=== PATIENT | male | born 1990 | race Caucasian/White ===

== ENCOUNTER 2017-03-26 21:49 | Emergency (ER) | payer SELFPAY ==
[~2017-03-26] VITALS: Ht 193 cm; Wt 91.0 kg
[~2017-03-26 21:49] MED LIST: CLIN150 PO; LORTA5 PO; Z.0.NO CURRENT MEDS
[2017-03-26 21:52] VITALS: BP 134/78; PULSE 58; RESP 18; TEMP 99.1; O2SAT 100
[2017-03-26] MEDS ORDERED: IBUP200C PO (22:09)
[2017-03-26 22:11] VITALS: BP 138/79; PULSE 69; RESP 16; O2SAT 98
[2017-03-26] MEDS ORDERED: CLINDAMYCIN 900 MG PREMIX 50 ML IV ONE (22:30)
--- NOTE | 2017-03-26 22:30 | PD ---
HPI Chief Complaint: Oral / Dental Pain or Problem Time Seen by Provider: 22:04 Travel History International Travel<30 days: No Contact w/Intl Traveler<30days: No Traveled to known affect area: No History of Present Illness HPI PATIENT STATES 2 DAYS OF SWELLING TO LEFT SIDE OF FACE, SEEN AT [facility] WHO WAS GOING TO TRANSFER TO [place], HOWEVER, PATIENT REFUSED BECAUSE IT WAS TOO FAR. PATIENT SIGNED OUT AMA AND STATES THAT HE WAS ADVISED TO COME TO [place] THAT WE WOULD HELP HIM. PATIENT ARRIVES WITH DVD OF CT NECK. PATIENT IS TOLERATING HIS OWN SECRETIONS BUT STATES IS DIFFICULT TO CLOSE MOUTH OR OPEN IT FURTHER THAN IT IS ALREADY DUE TO PAIN. 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 not been checked since patient 11 yrs old) Chest Pain: Yes COPD: No Diminished Hearing: No GERD: Yes Genitourinary: No Reproductive: No Migraines: Yes Myocardial Infarction: No Tetanus Vaccination: Unknown Influenza Vaccination: No Past Surgical History Abdominal Surgery: Yes (HERNIA REPAIR) Appendectomy: Yes Other Surgery: Yes (LUMBAR PUNCTURE) Social History Alcohol Use: No Tobacco Use: Yes (1-3CIGGARETTS) Substance Use: No (DENIES) Allergies-Medications (Allergen,Severity, Reaction): Coded Allergies: No Known Allergies (Verified Allergy, Unknown, 03/26/17) Reported Meds & Prescriptions Reported Meds & Active Scripts Active Ultram (Tramadol HCl) 50 Mg Tab 50 Mg PO Q6H PRN Cipro (Ciprofloxacin HCl) 500 Mg Tab 500 Mg PO BID 10 Days Reported Ibuprofen 200 Mg Cap 200 Mg PO Q6H PRN Review of Systems Except as stated in HPI: all other systems reviewed are Neg General / Constitutional: No: Fever Eyes: No: Visual changes HENT: Positive: Dental Difficulties Cardiovascular: No: Chest Pain or Discomfort Respiratory: No: Shortness of Breath Gastrointestinal: No: Abdominal Pain Genitourinary: No: Dysuria Musculoskeletal: No: Pain Skin: No Rash Neurologic: No: Weakness Psychiatric: No: Depression Endocrine: No: Polydipsia Hematologic/Lymphatic: No: Easy Bruising Physical Exam Narrative GENERAL: SKIN: Warm and dry. HEAD: Atraumatic. Normocephalic. EYES: Pupils equal and round. No scleral icterus. No injection or drainage. ENT: No nasal bleeding or discharge. Mucous membranes pink and moist. LEFT MANDIBULAR FIRST MOLAR ABSCESS WITH EXTENSION TO FACE NECK: Trachea midline. No JVD. CARDIOVASCULAR: Regular rate and rhythm. RESPIRATORY: No accessory muscle use. Clear to auscultation. Breath sounds equal bilaterally. GASTROINTESTINAL: Abdomen soft, non-tender, nondistended. Hepatic and splenic margins not palpable. MUSCULOSKELETAL: Extremities without clubbing, cyanosis, or edema. No obvious deformities. NEUROLOGICAL: Awake and alert. No obvious cranial nerve deficits. Motor grossly within normal limits. Five out of 5 muscle strength in the arms and legs. Normal speech. PSYCHIATRIC: Appropriate mood and affect; insight and judgment normal. Data Data Last Documented VS Vital Signs Date Time Temp Pulse Resp B/P (MAP) Pulse Ox O2 Delivery O2 Flow Rate FiO2 03/26/17 23:16 56 16 126/73 (90) 96 Room Air 03/26/17 21:52 99.1 Orders Orders Complete Blood Count With Diff (03/26/17 22:16) Comprehensive Metabolic Panel (03/26/17 22:16) Blood Culture (03/26/17 22:16) Iv Access Insert/Monitor (03/26/17 22:16) Ecg Monitoring (03/26/17 22:16) Oximetry (03/26/17 22:16) Clindamycin 900 Mg Premix (Cleocin 900 M (03/26/17 22:30) Clindamycin Inj (Cleocin Inj) (03/26/17 22:45) Ketorolac Inj (Toradol Inj) (03/26/17 23:30) Morphine Inj (Morphine Inj) (03/26/17 23:30) Labs Laboratory Tests Test 03/26/17 22:30 White Blood Count 15.1 TH/MM3 Red Blood Count 4.77 MIL/MM3 Hemoglobin 14.1 GM/DL Hematocrit 41.6 % Mean Corpuscular Volume 87.1 FL Mean Corpuscular Hemoglobin 29.6 PG Mean Corpuscular Hemoglobin Concent 34.0 % Red Cell Distribution Width 12.4 % Platelet Count 176 TH/MM3 Mean Platelet Volume 8.7 FL Neutrophils (%) (Auto) 92.4 % Lymphocytes (%) (Auto) 4.7 % Monocytes (%) (Auto) 2.5 % Eosinophils (%) (Auto) 0.2 % Basophils (%) (Auto) 0.2 % Neutrophils # (Auto) 13.9 TH/MM3 Lymphocytes # (Auto) 0.7 TH/MM3 Monocytes # (Auto) 0.4 TH/MM3 Eosinophils # (Auto) 0.0 TH/MM3 Basophils # (Auto) 0.0 TH/MM3 CBC Comment DIFF FINAL Differential Comment Blood Urea Nitrogen 8 MG/DL Creatinine 0.74 MG/DL Random Glucose 95 MG/DL Total Protein 7.2 GM/DL Albumin 3.8 GM/DL Calcium Level 8.9 MG/DL Alkaline Phosphatase 65 U/L Aspartate Amino Transf (AST/SGOT) 17 U/L Alanine Aminotransferase (ALT/SGPT) 24 U/L Total Bilirubin 1.0 MG/DL Sodium Level 141 MEQ/L Potassium Level 3.6 MEQ/L Chloride Level 106 MEQ/L Carbon Dioxide Level 24.9 MEQ/L Anion Gap 10 MEQ/L Estimat Glomerular Filtration Rate 128 ML/MIN MDM Medical Decision Making Medical Screen Exam Complete: Yes Emergency Medical Condition: Yes Medical Record Reviewed: Yes Differential Diagnosis FACIAL ABSCESS OF ODONTOGENIC ORIGIN V FACIAL CELLULITIS V LUDWIGS ANGINA Narrative Course CT REVIEWED WITH DR CHRISTENSEN, HE WILL FOLLOW UP WITH PATIENT AFTER DISCHARGE.....NO E/O ANGINA ON CT NECK. Diagnosis Primary Impression: FACIAL ABSCESS OF ODONTOGENIC ORIGIN Admitting Information Admitting Physician Requests: Observation Referrals: Fidel Christensen DDAsaf Scripts Tramadol (Ultram) 50 Mg Tab 50 MG PO Q6H Y for PAIN, #15 TAB 0 Refills Prov: Good Rosenthal MD 03/26/17 Ciprofloxacin (Cipro) 500 Mg Tab 500 MG PO BID for Infection for 10 Days, #20 TAB 0 Refills Prov: Good Rosenthal MD 03/26/17 Disposition: 01 DISCHARGE HOME Condition: Stable Good Rosenthal MD Mar 26, 2017 22:30
[2017-03-26 22:40] VITALS: O2SAT 98
[2017-03-26] MEDS ORDERED: CLINDAMYCIN INJ 900 MG in SODIUM CHLORIDE 0.9% INJ 100 ML IV ONE (22:45)
[2017-03-26 22:50] LABS: AUTOMATED NEUTROPHIL # 13.9 TH/MM3 (1.8-7.7); BASOPHIL % 0.2 % (0.0-2.0); EOSINOPHIL % 0.2 % (0.0-4.0); HEMATOCRIT 41.6 % (39.0-51.0); HEMO FLAGS DIFF FINAL; LYMPH % 4.7 % (9.0-44.0); LYMPHOCYTE # 0.7 TH/MM3 (1.0-4.8); MEAN CELL VOLUME 87.1 FL (80.0-100.0); MEAN CORPUSCULAR HEMOGLOBIN 29.6 PG (27.0-34.0); MONO % 2.5 % (0.0-8.0); NEUT % 92.4 % (16.0-70.0); PLATELET COUNT 176 TH/MM3 (150-450); RED BLOOD COUNT 4.77 MIL/MM3 (4.50-5.90); RED CELL DISTRIBUTION WIDTH 12.4 % (11.6-17.2); WHITE BLOOD COUNT 15.1 TH/MM3 (4.0-11.0)
[2017-03-26 23:11] LABS: ALT (GPT) 24 U/L (12-78); ANION GAP 10 MEQ/L (5-15); AST (GOT) 17 U/L (15-37); BICARBONATE 24.9 MEQ/L (21.0-32.0); BLOOD UREA NITROGEN 8 MG/DL (7-18); CHLORIDE 106 MEQ/L (98-107); GLOMERULAR FILTRATION RATE 128 ML/MIN (>89); POTASSIUM 3.6 MEQ/L (3.5-5.1); SODIUM (NA) 141 MEQ/L (136-145)
[2017-03-26 23:13] LABS: ALKALINE PHOSPHATASE 65 U/L (45-117)
[2017-03-26 23:16] VITALS: BP 126/73; PULSE 56; RESP 16; O2SAT 96
[2017-03-26] MEDS ORDERED: TRAM50 PO (23:27)
[2017-03-26] MEDS ORDERED: CIPR-9 PO (23:27)
[2017-03-26] MEDS ORDERED: MORPHINE SULFATE 2 MG/ML INJ IV PUSH ONE (23:30)
[2017-03-26] MEDS ORDERED: KETOROLAC TROMETHAMINE 30 MG/ML (IVP) VIAL IV PUSH ONE (23:30)
== END 2017-03-27 00:23 | disposition home or self-care (01) ==
LOC: NEPC 21:49
DX: K04.7 Periapical abscess without sinus (principal); J45.909 Unspecified asthma, uncomplicated; K21.9 Gastro-esophageal reflux disease without esophagitis; F17.210 Nicotine dependence, cigarettes, uncomplicated
CPT/HCPCS: 80053; 85025; 87040; 96365; 96375; 99284; J1885; J2270

== ENCOUNTER 2017-09-11 14:48 | Emergency (ER) | payer OTHER ==
[~2017-09-11] VITALS: Ht 193 cm; Wt 90.0 kg
[~2017-09-11 14:48] MED LIST changes: +CIPR-9 PO; -CLIN150 PO; +IBUP200C PO; -LORTA5 PO; +TRAM50 PO; -Z.0.NO CURRENT MEDS
[2017-09-11 14:50] VITALS: BP 139/72; PULSE 90; RESP 16; TEMP 98.4; O2SAT 99
[2017-09-11] MEDS ORDERED: SODIUM CHLOR 0.9% 1000 ML INJ 1,000 ML IV SCH (15:35)
--- NOTE | 2017-09-11 15:36 | PD ---
HPI Chief Complaint: Complaint Time Seen by Provider: 14:57 Travel History International Travel<30 days: No Contact w/Intl Traveler<30days: No Traveled to known affect area: No History of Present Illness HPI Patient 27-year-old male presents emergency department for evaluation of right testicular pain and right lower quadrant abdominal pain. Patient also states he noticed some blood in his urine today. States is never happened to him before but similar pain happened to him when he was diagnosed with a hernia in the past. He endorses nausea but no vomiting no diarrhea. He states the pain has been intermittently very severe and currently kind of mild. 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 not been checked since patient 11 yrs old) Chest Pain: Yes COPD: No Diminished Hearing: No GERD: Yes Genitourinary: No Reproductive: No Migraines: Yes Myocardial Infarction: No Past Surgical History Abdominal Surgery: Yes (HERNIA REPAIR) Appendectomy: Yes Other Surgery: Yes (LUMBAR PUNCTURE) Social History Alcohol Use: No Tobacco Use: Yes (1-3CIGGARETTS) Substance Use: No (DENIES) Allergies-Medications (Allergen,Severity, Reaction): Coded Allergies: No Known Allergies (Verified Allergy, Unknown, 03/26/17) Reported Meds & Prescriptions Reported Meds & Active Scripts Active Ultram (Tramadol HCl) 50 Mg Tab 50 Mg PO Q6H PRN Cipro (Ciprofloxacin HCl) 500 Mg Tab 500 Mg PO BID 10 Days Reported Ibuprofen 200 Mg Cap 200 Mg PO Q6H PRN Review of Systems Except as stated in HPI: all other systems reviewed are Neg Physical Exam Narrative GENERAL: Well-developed well-nourished, no obvious distress SKIN: Focused skin assessment warm/dry. HEAD: Atraumatic. Normocephalic. EYES: Pupils equal and round. No scleral icterus. No injection or drainage. ENT: No nasal bleeding or discharge. Mucous membranes pink and moist. NECK: Trachea midline. No JVD. CARDIOVASCULAR: Regular rate and rhythm. No murmur appreciated. RESPIRATORY: No accessory muscle use. Clear to auscultation. Breath sounds equal bilaterally. GASTROINTESTINAL: Abdomen soft, mildly tender in the right lower quadrant no rebound no percussive tenderness, psoas and obturator signs negative nondistended. Hepatic and splenic margins not palpable. No CVA tenderness peer GENITOURINARY: Penis and scrotum contents appear normal grossly. The right testy is minimally tender to palpation and not really well localizing. It is freely mobile in the scrotal sac. MUSCULOSKELETAL: No obvious deformities. No clubbing. No cyanosis. No edema. NEUROLOGICAL: Awake and alert. No obvious cranial nerve deficits. Motor grossly within normal limits. Normal speech. PSYCHIATRIC: Appropriate mood and affect; insight and judgment normal. Data Data Last Documented VS Vital Signs Date Time Temp Pulse Resp B/P (MAP) Pulse Ox O2 Delivery O2 Flow Rate FiO2 09/11/17 15:55 99 09/11/17 14:50 98.4 90 16 139/72 (94) Orders Orders Urinalysis - C+S If Indicated (09/11/17 15:16) Complete Blood Count With Diff (09/11/17 15:35) Comprehensive Metabolic Panel (09/11/17 15:35) Lipase (09/11/17 15:35) Iv Access Insert/Monitor (09/11/17 15:35) Ecg Monitoring (09/11/17 15:35) Oximetry (09/11/17 15:35) Sodium Chlor 0.9% 1000 Ml Inj (Ns 1000 M (09/11/17 15:35) Sodium Chloride 0.9% Flush (Ns Flush) (09/11/17 15:45) Ketorolac Inj (Toradol Inj) (09/11/17 15:45) Us Testicles W Doppler (09/11/17 ) Ct Abd/Pel W/O Iv Contrast (09/11/17 ) Labs Laboratory Tests Test 09/11/17 15:44 White Blood Count 7.1 TH/MM3 Red Blood Count 5.33 MIL/MM3 Hemoglobin 15.7 GM/DL Hematocrit 46.2 % Mean Corpuscular Volume 86.7 FL Mean Corpuscular Hemoglobin 29.5 PG Mean Corpuscular Hemoglobin Concent 34.0 % Red Cell Distribution Width 13.1 % Platelet Count 192 TH/MM3 Mean Platelet Volume 8.5 FL Neutrophils (%) (Auto) 67.3 % Lymphocytes (%) (Auto) 24.2 % Monocytes (%) (Auto) 6.8 % Eosinophils (%) (Auto) 1.4 % Basophils (%) (Auto) 0.3 % Neutrophils # (Auto) 4.8 TH/MM3 Lymphocytes # (Auto) 1.7 TH/MM3 Monocytes # (Auto) 0.5 TH/MM3 Eosinophils # (Auto) 0.1 TH/MM3 Basophils # (Auto) 0.0 TH/MM3 CBC Comment DIFF FINAL Differential Comment Urine Color YELLOW Urine Turbidity CLEAR Urine pH 5.5 Urine Specific [place] 1.019 Urine Protein NEG mg/dL Urine Glucose (UA) NEG mg/dL Urine Ketones NEG mg/dL Urine Occult Blood TRACE Urine Nitrite NEG Urine Bilirubin NEG Urine Urobilinogen 2.0 MG/DL Urine Leukocyte Esterase NEG Urine RBC 2 /hpf Urine WBC 1 /hpf Microscopic Urinalysis Comment CULT NOT INDICATED Blood Urea Nitrogen 15 MG/DL Creatinine 1.05 MG/DL Random Glucose 82 MG/DL Total Protein 7.5 GM/DL Albumin 4.4 GM/DL Calcium Level 9.4 MG/DL Alkaline Phosphatase 56 U/L Aspartate Amino Transf (AST/SGOT) 22 U/L Alanine Aminotransferase (ALT/SGPT) 31 U/L Total Bilirubin 1.7 MG/DL Sodium Level 140 MEQ/L Potassium Level 3.7 MEQ/L Chloride Level 103 MEQ/L Carbon Dioxide Level 29.6 MEQ/L Anion Gap 7 MEQ/L Estimat Glomerular Filtration Rate 85 ML/MIN Lipase 146 U/L MDM Medical Decision Making Medical Screen Exam Complete: Yes Emergency Medical Condition: Yes Differential Diagnosis Appendicitis unlikely, torsion unlikely, kidney stone, colitis, cholecystitis, pancreatitis Narrative Course Patient room to the emergency department, he appears well in no distress, his abdomen and scrotum are minimally tender to palpation I think the patient is rather stoic. I recommended him for an ultrasound of the scrotum as well as a CAT scan of his abdomen to rule out kidney stones and torsion. Epididymitis is also on the differential diagnosis list. He does have some blood in the urine, his other labs are reassuring. CAT scan of his abdomen and ultrasound still pending the patient was discussed with Dr. Martínez at 1700 shift change to follow-up and disposition appropriately Condition: Stable Burton Lemus MD Sep 11, 2017 15:36
[2017-09-11] MEDS ORDERED: SODIUM CHLORIDE 0.9% FLUSH 10 ML FLUSH IV FLUSH PRN (15:45)
[2017-09-11] MEDS ORDERED: KETOROLAC TROMETHAMINE 30 MG/ML (IVP) VIAL IVP ONE (15:45)
[2017-09-11 15:55] VITALS: O2SAT 99
[2017-09-11 16:12] LABS: AUTOMATED NEUTROPHIL # 4.8 TH/MM3 (1.8-7.7); BASOPHIL % 0.3 % (0.0-2.0); EOSINOPHIL # 0.1 TH/MM3 (0-0.4); EOSINOPHIL % 1.4 % (0.0-4.0); HEMATOCRIT 46.2 % (39.0-51.0); HEMOGLOBIN 15.7 GM/DL (13.0-17.0); LYMPH % 24.2 % (9.0-44.0); LYMPHOCYTE # 1.7 TH/MM3 (1.0-4.8); MEAN CELL VOLUME 86.7 FL (80.0-100.0); MEAN CORPUSCULAR HEMOGLOBIN 29.5 PG (27.0-34.0); MEAN PLATELET VOLUME 8.5 FL (7.0-11.0); MONO % 6.8 % (0.0-8.0); MONOCYTE # 0.5 TH/MM3 (0-0.9); NEUT % 67.3 % (16.0-70.0); PLATELET COUNT 192 TH/MM3 (150-450); RED BLOOD COUNT 5.33 MIL/MM3 (4.50-5.90); RED CELL DISTRIBUTION WIDTH 13.1 % (11.6-17.2); WHITE BLOOD COUNT 7.1 TH/MM3 (4.0-11.0)
[2017-09-11 16:15] LABS: BILIRUBIN, URINE NEG (NEG); BLOOD, URINE TRACE (NEG); GLUCOSE,URINE NEG (NEG); KETONE, URINE NEG (NEG); NITRITE,URINE NEG (NEG); PH, URINE 5.5 (5.0-8.5); URINE COLOR YELLOW (YELLW/STRAW); URINE LEUKOCYTE ESTERASE NEG (NEG)
[2017-09-11 16:37] LABS: ALBUMIN 4.4 GM/DL (3.4-5.0); AST (GOT) 22 U/L (15-37); BICARBONATE 29.6 MEQ/L (21.0-32.0); BLOOD UREA NITROGEN 15 MG/DL (7-18); CALCIUM 9.4 MG/DL (8.5-10.1); CHLORIDE 103 MEQ/L (98-107); CREATININE 1.05 MG/DL (0.60-1.30); GLOMERULAR FILTRATION RATE 85 ML/MIN (>89); GLUCOSE,RANDOM 82 MG/DL (74-106); SODIUM (NA) 140 MEQ/L (136-145)
[2017-09-11 16:38] LABS: ALT (GPT) 31 U/L (12-78)
[2017-09-11 16:41] LABS: ALKALINE PHOSPHATASE 56 U/L (45-117); TOTAL BILIRUBIN ADULT 1.7 MG/DL (0.2-1.0); TOTAL PROTEIN 7.5 GM/DL (6.4-8.2)
--- NOTE | 2017-09-11 16:48 | RADRPT ---
EXAM DATE/TIME: 09/11/2017 16:30 [facility] COMPARISON: No previous studies available for comparison. INDICATIONS : Patient complains of right groin pain. ORAL CONTRAST: No oral contrast ingested. RADIATION DOSE: 6.71 CTDIvol (mGy) MEDICAL HISTORY : None SURGICAL HISTORY : hernia repair ENCOUNTER: Initial ACUITY: 1 day PAIN SCALE: 4/10 LOCATION: Right groin TECHNIQUE: Volumetric scanning of the abdomen and pelvis was performed. Using automated exposure control and ad justment of the mA and/or kV according to patient size, radiation dose was kept as low as reasonably achievable to obtain optimal diagnostic quality images. DICOM format image data is available electro nically for review and comparison. FINDINGS: LOWER LUNGS: The visualized lower lungs are clear. LIVER: Homogeneous density without lesion. There is no dilation of the biliary tree. No calcified gallston es. SPLEEN: Normal size without lesion. PANCREAS: Within normal limits. KIDNEYS: Normal in size and shape. There is no mass, stone, or hydronephrosis. ADRENAL GLANDS: Within normal limits. VASCULAR: There is no aortic aneurysm. BOWEL/MESENTERY: The stomach, small bowel, and colon demonstrate no acute abnormality. There is no free intraperitone al air or fluid. Clips in the region of the appendix ABDOMINAL WALL: Within normal limits. RETROPERITONEUM: There is no lymphadenopathy. BLADDER: No wall thickening or mass. REPRODUCTIVE: Within normal limits. INGUINAL: There is no lymphadenopathy or hernia. MUSCULOSKELETAL: Within normal limits for patient age. CONCLUSION: Normal examination. I suspect the patient has had an appendectomy. Ramirez Chanel MD on September 11, 2017 at 16:44 Board Certified Radiologist. This report was verified electronically.
--- NOTE | 2017-09-11 18:51 | RADRPT ---
EXAM DATE/TIME: 09/11/2017 17:41 [facility] COMPARISON: No previous studies available for comparison. INDICATIONS : Scrotal pain. MEDICAL HISTORY : Gastroesophageal reflux disease. Migraines. Concussion. Asthma. Leukemia. Blood transfusion. SURGICAL HISTORY : Appendectomy. Hernia repair. ENCOUNTER: Initial ACUITY: 1 day PAIN SCORE: 3/10 LOCATION: Bilateral scrotum. MEASUREMENTS: RIGHT TESTICLE: 5.5 x 3.9 x 2.8cm LEFT TESTICLE: 5.2 x 3.6 x 2.6cm FINDINGS: RIGHT TESTICLE: Homogeneous echotexture without intra or extratesticular mass. Blood flow is symmetric and within no rmal limits. No hydrocele or varicocele. Epididymis is within normal limits. LEFT TESTICLE: Homogeneous echotexture without intra or extratesticular mass. Blood flow is symmetric and within no rmal limits. No hydrocele or varicocele. Epididymis is within normal limits. SCROTUM: Within normal limits. CONCLUSION: Negative study. No torsion or other acute abnormality demonstrated. Redd Purcell MD on September 11, 2017 at 18:47 Board Certified Radiologist. This report was verified electronically.
--- NOTE | 2017-09-11 19:32 | PD ---
Data Data Last Documented VS Vital Signs Date Time Temp Pulse Resp B/P (MAP) Pulse Ox O2 Delivery O2 Flow Rate FiO2 09/11/17 15:55 99 09/11/17 14:50 98.4 90 16 139/72 (94) Orders Orders Urinalysis - C+S If Indicated (09/11/17 15:16) Complete Blood Count With Diff (09/11/17 15:35) Comprehensive Metabolic Panel (09/11/17 15:35) Lipase (09/11/17 15:35) Iv Access Insert/Monitor (09/11/17 15:35) Ecg Monitoring (09/11/17 15:35) Oximetry (09/11/17 15:35) Sodium Chlor 0.9% 1000 Ml Inj (Ns 1000 M (09/11/17 15:35) Sodium Chloride 0.9% Flush (Ns Flush) (09/11/17 15:45) Ketorolac Inj (Toradol Inj) (09/11/17 15:45) Us Testicles W Doppler (09/11/17 ) Ct Abd/Pel W/O Iv Contrast (09/11/17 ) Labs Laboratory Tests Test 09/11/17 15:44 White Blood Count 7.1 TH/MM3 Red Blood Count 5.33 MIL/MM3 Hemoglobin 15.7 GM/DL Hematocrit 46.2 % Mean Corpuscular Volume 86.7 FL Mean Corpuscular Hemoglobin 29.5 PG Mean Corpuscular Hemoglobin Concent 34.0 % Red Cell Distribution Width 13.1 % Platelet Count 192 TH/MM3 Mean Platelet Volume 8.5 FL Neutrophils (%) (Auto) 67.3 % Lymphocytes (%) (Auto) 24.2 % Monocytes (%) (Auto) 6.8 % Eosinophils (%) (Auto) 1.4 % Basophils (%) (Auto) 0.3 % Neutrophils # (Auto) 4.8 TH/MM3 Lymphocytes # (Auto) 1.7 TH/MM3 Monocytes # (Auto) 0.5 TH/MM3 Eosinophils # (Auto) 0.1 TH/MM3 Basophils # (Auto) 0.0 TH/MM3 CBC Comment DIFF FINAL Differential Comment Urine Color YELLOW Urine Turbidity CLEAR Urine pH 5.5 Urine Specific [place] 1.019 Urine Protein NEG mg/dL Urine Glucose (UA) NEG mg/dL Urine Ketones NEG mg/dL Urine Occult Blood TRACE Urine Nitrite NEG Urine Bilirubin NEG Urine Urobilinogen 2.0 MG/DL Urine Leukocyte Esterase NEG Urine RBC 2 /hpf Urine WBC 1 /hpf Microscopic Urinalysis Comment CULT NOT INDICATED Blood Urea Nitrogen 15 MG/DL Creatinine 1.05 MG/DL Random Glucose 82 MG/DL Total Protein 7.5 GM/DL Albumin 4.4 GM/DL Calcium Level 9.4 MG/DL Alkaline Phosphatase 56 U/L Aspartate Amino Transf (AST/SGOT) 22 U/L Alanine Aminotransferase (ALT/SGPT) 31 U/L Total Bilirubin 1.7 MG/DL Sodium Level 140 MEQ/L Potassium Level 3.7 MEQ/L Chloride Level 103 MEQ/L Carbon Dioxide Level 29.6 MEQ/L Anion Gap 7 MEQ/L Estimat Glomerular Filtration Rate 85 ML/MIN Lipase 146 U/L MDM Supervised Visit with SARWAT: No Narrative Course This case is checked out to me by daily at 5 PM. I have reevaluated the patient and discussed all of his workup with him and answered his questions. Urine and blood work is negative. CT imaging is negative. Ultrasound of the testicles looks normal to the radiologist. The patient was advised to follow up with their physician and return if they worsen. Diagnosis Primary Impression: Flank pain, acute Additional Impression: Testicular pain, right Additional Instruction: The patient was advised to follow up with their physician and return if they worsen. Med/Other Pt SpecificInfo: Other Disposition: 01 DISCHARGE HOME Condition: Stable Eleazar Patel MD Sep 11, 2017 19:32
== END 2017-09-11 19:40 | disposition home or self-care (01) ==
LOC: NEPD 14:48
DX: R10.31 Right lower quadrant pain (principal); N50.811 Right testicular pain; R31.9 Hematuria, unspecified; R11.0 Nausea; K21.9 Gastro-esophageal reflux disease without esophagitis; Z72.0 Tobacco use; Z86.79 Personal history of other diseases of the circulatory system; Z86.69 Personal history of other diseases of the nervous system and sense organs
CPT/HCPCS: 74176; 76870; 80053; 81001; 83690; 85025; 93975; 96361; 96374; 99285; J1885; J7030